=== PATIENT | male | born 1970 ===

== ENCOUNTER 2021-09-21 20:00 | Outpatient (CLI) | payer MEDICAID, SELFPAY | END 2021-09-21 20:01 | disposition home or self-care (01) | PROVIDERS: Visit Provider Nurse Practitioner Family | DX: G47.33 Obstructive sleep apnea (adult) (pediatric) (principal) | CPT/HCPCS: 95810 ==

== ENCOUNTER 2021-10-31 20:00 | Outpatient (CLI) | payer MEDICAID, SELFPAY | END 2021-10-31 20:01 | disposition home or self-care (01) | LOC: SLEEP 11-01 07:32 | PROVIDERS: Visit Provider Physician Assistant | DX: G47.33 Obstructive sleep apnea (adult) (pediatric) (principal) | CPT/HCPCS: 95811 ==

== ENCOUNTER 2024-10-01 15:07 | Emergency (ER) | payer OTHER, MEDICAID, SELFPAY ==
[2024-10-01 15:38] VITALS: BP 122/72; PULSE 106; RESP 16; TEMP 36.8; O2SAT 97; BMI 27.3
[2024-10-01 16:54] LABS: Basophils % 0.6 %; Eosinophils # 0.1 10^3/uL (0.0-0.8); Eosinophils % 1.3 %; Hematocrit 43.2 % (37-53); Lymphocytes # 1.7 10^3/uL (0.8-4.8); Lymphocytes % 24.7 %; Mean Corpuscular HGB Conc 33.3 g/dL (30-55); Mean Corpuscular Hemoglobin 30.7 pg (27-33); Mean Corpuscular Volume 92.1 fl (82-101); Mean Platelet Volume 9.5 fL (7.4-10.4); Monocytes # 0.5 10^3/uL (0.2-0.9); Monocytes % 7.5 %; Neutrophils # 4.57 10^3/uL (1.8-7.7); Neutrophils % 65.6 %; Nucleated Red Blood Cells % 0 %; Platelet Count 371 10^3/cmm (157-399); Red Blood Count 4.69 10^6/uL (3.85-5.65); Red Cell Distribution Width 12.7 % (12.1-15.1); White Blood Count 6.96 10^3/uL (3.29-11.43)
--- NOTE | 2024-10-01 17:02 | CTR_ITS ---
PROCEDURE INFORMATION: Exam: CT Abdomen And Pelvis Without Contrast Exam date and time: 10/01/2024 5:09 PM Age: 53 years old Clinical indication: Abdominal pain; Flank; Left; Prior surgery; Surgery date: 6+ months; Surgery type: Lspine x19 yrs; Additional info: Left flank and pelvic pain concerning for kidney stone TECHNIQUE: Imaging protocol: Computed tomography of the abdomen and pelvis without contrast. Radiation optimization: All CT scans at this facility use at least one of these dose optimization techniques: automated exposure control; mA and/or kV adjustment per patient size (includes targeted exams where dose is matched to clinical indication); or iterative reconstruction. COMPARISON: No relevant prior studies available. RADIATION DOSE METRICS: Total DLP (mGy-cm): 897.53 FINDINGS: Diaphragm: Small hiatal hernia. Liver: Normal. No mass. Gallbladder and biliary ducts: Normal. No calcified stones. No ductal dilation. Pancreas: Normal. No ductal dilation. Spleen: Normal. No splenomegaly. Adrenal glands: Normal. No mass. Kidneys and ureters: Normal. No hydronephrosis. Stomach and bowel: Unremarkable. No obstruction. No mucosal thickening. Appendix: No evidence of appendicitis. Intraperitoneal space: Unremarkable. No free air. No significant fluid collection. Vasculature: Atherosclerosis. No abdominal aortic aneurysm. Lymph nodes: Unremarkable. No enlarged lymph nodes. Urinary bladder: The urinary bladder is underdistended. Reproductive: Prostatomegaly. Indentation of the prostate to the base of the urinary bladder. Bones/joints: Posterior fusion from L4 through S1. Laminectomy changes are also present at these levels. Soft tissues: Unremarkable. CT/CT kidney stone 42251 IMPRESSION: No obstructive uropathy. Incidental/chronic findings as above.
--- NOTE | 2024-10-01 17:06 | W.ED.ABDPA2 ---
HPI - Abdominal Pain General: Chief Complaint: Abdominal Pain Stated Complaint: testicle pain Time Seen by Provider: 10/01/24 16:57 History of Present Illness: 53-year-old male presents with left flank pain that radiates into his left groin. Is been going on for about 2 weeks and got worse today. He is been nauseous. Patient went to his primary care provider and sent him to the ER because they were concerned about a kidney stone. He does have some mild discomfort with urination. Associated Symptoms: Reports dysuria and nausea; Denies chills and fever(s) Related Data Previous Rx's ?Medication ?Instructions ?Recorded naproxen 500 mg tablet 500 mg PO BID PRN pain #30 tabs 10/01/24 Allergies Allergy/AdvReac Type Severity Reaction Status Date / Time No Known Allergies Allergy Verified 10/01/24 15:43 Review of Systems Const: Denies: fever(s) or chills Card: Denies: chest pain or palpitations Resp: Denies: dyspnea or productive cough GI: Reports: abdominal pain and nausea : Reports: flank pain and dysuria Neuro: Denies: headache(s) Physical Exam Const: COMMON NORMALS: average body habitus and healthy appearing GENERAL APPEARANCE: cooperative; not comfortable Resp: COMMON NORMALS: normal respiratory effort and clear to auscultation bilaterally AUSCULTATION: clear to auscultation bilaterally Cardio: COMMON NORMALS: regular rate and regular rhythm RATE: regular rate RHYTHM: regular rhythm GI: COMMON NORMALS: Soft to palpation INSPECTION: Yes normal to inspection PALPATION: Yes Soft to palpation and Yes Tenderness to palpation present (GI) Details: LLQ : BLADDER/KIDNEY EXAM: Yes CVA tenderness on the left Back/Pelvis: GENERAL BACK: Yes CVA tenderness Course Vital Signs: Vital signs: Vital Signs Temperature 98.3 F 10/01/24 15:38 Pulse Rate 106 H 10/01/24 15:38 Respiratory Rate 16 10/01/24 15:38 Blood Pressure 122/74 10/01/24 17:51 Pulse Oximetry 94 10/01/24 17:51 MDM - Abdominal Pain Medical Decision Making Patient's diagnostic studies were reviewed and show no significant findings on the lab. Patient CT abdomen pelvis without contrast was ordered to evaluate for kidney stone or other etiology and was negative for any acute findings. Patient heart rate improved with some Toradol and IV fluids. He may just be mildly dehydrated. Recommended he drink plenty of fluids. I will provide him some naproxen for discomfort. Patient was stable and discharged home Lab Data 10/01/24 16:46 10/01/24 16:46 Labs/Radiology: Radiology Impressions Abdomen/Pelvis CT 10/01/24 17:02 IMPRESSION: No obstructive uropathy. Incidental/chronic findings as above. Laboratory Results WBC 6.96 10^3/uL (3.29-11.43) 10/01/24 16:46 RBC 4.69 10^6/uL (3.85-5.65) 10/01/24 16:46 Hgb 14.40 g/dL (11.27-16.99) 10/01/24 16:46 Hct 43.2 % (37-53) 10/01/24 16:46 MCV 92.1 fl (82-101) 10/01/24 16:46 MCH 30.7 pg (27-33) 10/01/24 16:46 MCHC 33.3 g/dL (30-55) 10/01/24 16:46 RDW 12.7 % (12.1-15.1) 10/01/24 16:46 Plt Count 371 10^3/cmm (157-399) 10/01/24 16:46 MPV 9.5 fL (7.4-10.4) 10/01/24 16:46 Neut % (Auto) 65.6 % 10/01/24 16:46 Lymph % (Auto) 24.7 % 10/01/24 16:46 [place] % (Auto) 7.5 % 10/01/24 16:46 Eos % (Auto) 1.3 % 10/01/24 16:46 Baso % (Auto) 0.6 % 10/01/24 16:46 Neut # (Auto) 4.57 10^3/uL (1.8-7.7) 10/01/24 16:46 Lymph # (Auto) 1.7 10^3/uL (0.8-4.8) 10/01/24 16:46 [place] # (Auto) 0.5 10^3/uL (0.2-0.9) 10/01/24 16:46 Eos # (Auto) 0.1 10^3/uL (0.0-0.8) 10/01/24 16:46 Baso # (Auto) 0.0 10^3/uL (0.0-0.1) 10/01/24 16:46 Nucleated RBC % (auto) 0 % 10/01/24 16:46 Nucleated RBCs # 0.0 /100WBC 10/01/24 16:46 Sodium 141 mmol/L (136-145) 10/01/24 16:46 Potassium 3.7 mmol/L (3.5-5.1) 10/01/24 16:46 Chloride 104 mmol/L (98-107) 10/01/24 16:46 Carbon Dioxide 24 mmol/L (22-29) 10/01/24 16:46 Anion Gap 16.7 (5-19) 10/01/24 16:46 BUN 24 mg/dL (6-20) H 10/01/24 16:46 Creatinine 0.7 mg/dL (0.7-1.2) 10/01/24 16:46 GFR Calculation 117.1 mL/min (90-130) 10/01/24 16:46 Glucose 101 mg/dL (65-115) 10/01/24 16:46 Calculated Osmolality 296 mOsm/kg (285-295) H 10/01/24 16:46 Calcium 9.6 mg/dL (8.5-10.5) 10/01/24 16:46 Total Bilirubin 0.3 mg/dL (0.15-1.2) 10/01/24 16:46 AST 19 U/L (0-40) 10/01/24 16:46 ALT 14 U/L (0-41) 10/01/24 16:46 Alkaline Phosphatase 72 U/L (40-130) 10/01/24 16:46 Total Protein 7.7 g/dL (6.6-8.7) 10/01/24 16:46 Albumin 4.5 g/dL (3.5-5.2) 10/01/24 16:46 Globulin 3.2 g/dL (1.3-4.6) 10/01/24 16:46 Urine Color Dark yellow (Yellow) A 10/01/24 16:46 Urine Appearance Clear (CLEAR) 10/01/24 16:46 Urine pH 5.0 (5-7) 10/01/24 16:46 Ur Specific [place] 1.034 (1.005-1.030) H 10/01/24 16:46 Urine Protein 1+ (Negative) A 10/01/24 16:46 Urine Glucose (UA) Negative (Normal) 10/01/24 16:46 Urine Ketones 1+ (Negative) H 10/01/24 16:46 Urine Blood Negative (Negative) 10/01/24 16:46 Urine Nitrate Negative (Negative) 10/01/24 16:46 Urine Bilirubin Negative (Negative) 10/01/24 16:46 Urine Urobilinogen 1.0 mg/dL (Negative) 10/01/24 16:46 Ur Leukocyte Esterase Trace (Negative) A 10/01/24 16:46 Urine RBC 0-2 /hpf (0-2) 10/01/24 16:46 Urine WBC 6-10 /hpf (0-5) 10/01/24 16:46 Ur Squamous Epith Cells 0-5 /hpf (0-5) 10/01/24 16:46 Amorphous Sediment Not Reportable 10/01/24 16:46 Urine Bacteria None seen /hpf (NONE) 10/01/24 16:46 Hyaline Casts 2.46 /lpf 10/01/24 16:46 All radiology interpretation(s) finalized by discharge Discharge Plan Discharge Patient Disposition: Home Clinical Impression: Left flank pain, Constipation Condition: Stable Prescriptions: New naproxen 500 mg tablet 500 mg PO BID PRN (Reason: pain) Qty: 30 0RF Discharge Orders: Discharge ED (Routine); Ordered 10/01/24 Ordered By: Artemio Wilson Discharge Diet: Usual diet Discharge Activity: Increase activity as tolerated Patient Instructions: Flank Pain (ED), Opioid Safety, Pain Management Activity Restrictions/Additional Instructions: Please be sure you are drinking plenty of fluids. Please follow-up with your primary care provider [facility] next week if your symptoms have not improved. You may use topical Voltaren/diclofenac along with 4% topical lidocaine with menthol. Use these as directed on package. Do not take any additional Aleve, ibuprofen or other NSAID with the prescribed medication. 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
[2024-10-01 17:07] VITALS: BP 137/86
[2024-10-01 17:18] LABS: Alanine Aminotransferase 14 U/L (0-41); Albumin Level 4.5 g/dL (3.5-5.2); Alkaline Phosphatase 72 U/L (40-130); Anion Gap 16.7 (5-19); Aspartate Amino Transferase 19 U/L (0-40); Blood Urea Nitrogen 24 mg/dL (6-20); Calcium 9.6 mg/dL (8.5-10.5); Carbon Dioxide 24 mmol/L (22-29); Chloride 104 mmol/L (98-107); Creatinine Clr Calc Pharmacy 124.2936; Globulin 3.2 g/dL (1.3-4.6); Glomerular Filtration Rate 117.1 mL/min (90-130); Glucose 101 mg/dL (65-115); Osmolality Calculated 296 mOsm/kg (285-295); Potassium 3.7 mmol/L (3.5-5.1); Sodium 141 mmol/L (136-145); Total Bilirubin 0.3 mg/dL (0.15-1.2); Total Protein 7.7 g/dL (6.6-8.7)
[2024-10-01 17:19] LABS: Bilirubin Urine Negative (Negative); Blood Urine Negative (Negative); Glucose Urine UA Negative (Normal); Ketones Urine 1+ (Negative); Leukocyte Esterase Urine Trace (Negative); Nitrate Urine Negative (Negative); Protein Urine 1+ (Negative); Urine Appearance Clear (CLEAR); Urine Color Dark Yellow (Yellow)
[2024-10-01 17:21] LABS: Add Urine Microscopic? YES; Bacteria Urine None Seen /hpf; Hyaline Casts Urine 2.46 /lpf; RBC Urine 0-2 /hpf (0-2); Squamous Epithelial Cell Urine 0-5 /hpf (0-5)
[2024-10-01 17:23] LABS: Specific Gravity, Urine 1.034 (1.005-1.030)
[2024-10-01 17:24] LABS: Add Urine Culture? No
[2024-10-01] MEDS: metoclopramide 5 mg/mL SDV 2 mL 10 MG IVP (17:34)
[2024-10-01] MEDS: ketorolac 30 mg/mL INJ 15 MG IVP (17:34)
[2024-10-01] MEDS: sodium chloride 0.9% 1,000 ML 999 ML IV (17:37)
[2024-10-01 17:51] VITALS: BP 122/74; O2SAT 94
[2024-10-01 18:40] VITALS: BP 124/86; PULSE 68; RESP 16; O2SAT 96
== END 2024-10-01 18:41 | disposition home or self-care (01) ==
PROVIDERS: Emergency Provider Student in an Organized Health Care Education/Training Program
DX: K59.00 Constipation, unspecified (principal); R10.9 Unspecified abdominal pain
CPT/HCPCS: 36415; 74176; 80053; 81001; 85025; 96374; 96375; 99285; J1885; J2765; J7030